=== PATIENT | female | born 1945 | race Caucasian/White ===

== ENCOUNTER → 2024-07-07 07:43 | Outpatient (REF) | payer MEDICARE, OTHER, SELFPAY ==
[2024-07-07 08:35] LABS: % Basophils 0.6 % (0-2); % Eosinophils 2.1 % (0-6); % Immature Granulocytes 0.2 % (0-0.5); % Lymphocytes 30.2 % (20.5-51.1); % Monocytes 8.3 % (1.7-9.3); % Neutrophils 58.6 % (42.2-75.2); Absolute Eosinophils 0.1 10^3/uL (0-0.7); Absolute Lymphocytes 1.6 10^3/uL (1.2-3.4); Absolute Monocytes 0.4 10^3/uL (0.1-0.6); Absolute Neutrophils 3.1 10^3/uL (1.4-6.5); Hematocrit 41.6 % (37.0-47.0); Hemoglobin 14.1 g/dL (12.0-16.0); Mean Corp Hgb Conc. 33.9 g/dL (33.0-37.0); Mean Corpuscular Hgb 30.5 pg (27.0-31.0); Mean Corpuscular Volume 89.8 fL (81.0-99.0); Mean Platelet Volume 9.9 fL (7.4-10.4); Nucleated Red Blood Cells % 0 %; Platelet Count 202 10^3/uL (130-400); Red Blood Cell Count 4.63 10^6/uL (4.20-5.40); Red Cell Dist. Width 13.3 % (11.5-14.5); White Blood Cell Count 5.2 10^3/uL (4.8-10.8)
[2024-07-07 08:40] LABS: Urine Albumin Negative (Neg - Trace); Urine Bilirubin Negative (Negative); Urine Character Clear (Clear); Urine Color Yellow; Urine Glucose Negative (Negative); Urine Ketone Negative (Negative); Urine Leukocyte Trace (Negative); Urine Nitrite Negative (Negative); Urine Occult Blood Negative (Negative); Urine Specific Gravity 1.025 (<1.030); Urine Urobilinogen Negative (Neg - 1+)
[2024-07-07 09:15] LABS: Urine Mucus Few
[2024-07-07 09:16] LABS: Urine Squamous Cell >30 /LPF (Few)
[2024-07-07 09:18] LABS: Urine Granular Cast 0-2 /LPF (0)
[2024-07-07 09:19] LABS: Urine Bacteria Few (Negative); Urine Red Blood Cell 0-2 /HPF (0-2)
[2024-07-07 10:42] LABS: ALT (SGPT) 20 U/L (0-35); AST (SGOT) 33 U/L (14-36); Albumin 4.6 g/dl (3.5-5.0); Alkaline Phosphatase 79 U/L (38-126); Blood Urea Nitrogen 22 mg/dl (7-17); Calcium 9.9 mg/dl (8.4-10.2); Carbon Dioxide 24 mmol/L (22-30); Chloride 107 mmol/L (98-107); Glucose 90 mg/dl (70-99); HDL Cholesterol 84 mg/dl; LDL Cholesterol, Calculated 149 mg/dl; Potassium 4.2 mmol/L (3.5-5.1); Sodium 140 mmol/L (135-145); Total Bilirubin 0.7 mg/dl (0.2-1.3); Total Cholesterol 252 mg/dl (50-199); Total Protein 7.5 g/dl (6.3-8.2); Triglyceride 95 mg/dl (10-149); Very Low Density Lipoprotein 19 mg/dl (0-30); eGFR > 60.00
[2024-07-07 10:51] LABS: Vitamin D, 25-OH*** 31.5 ng/mL (30-80)
[2024-07-07 11:07] LABS: TSH 2.28 uIU/ml (0.47-4.68)
== END ==
LOC: REG 07:43
PROVIDERS: ATTENDING PHYSICIAN Internal Medicine
DX: Z00.00 Encounter for general adult medical examination without abnormal findings (principal); I10 Essential (primary) hypertension; Z79.899 Other long term (current) drug therapy
CPT/HCPCS: 36415; 80053; 80061; 81003; 81015; 82306; 84443; 85025

== ENCOUNTER → 2024-07-26 14:47 | Outpatient (REF) | payer MEDICARE, OTHER, SELFPAY | LOC: PAVMRI 14:47 | PROVIDERS: ATTENDING PHYSICIAN Orthopaedic Surgery Orthopaedic Surgery of the Spine; FAMILY PHYSICIAN Internal Medicine | DX: M47.12 Other spondylosis with myelopathy, cervical region (principal) | CPT/HCPCS: 72141 ==

== ENCOUNTER → 2025-01-23 11:46 | Outpatient (REF) | payer MEDICARE, OTHER, SELFPAY | LOC: DHSLP 11:46 | PROVIDERS: ATTENDING PHYSICIAN Internal Medicine | DX: G47.33 Obstructive sleep apnea (adult) (pediatric) (principal) | CPT/HCPCS: 95800 ==

== ENCOUNTER → 2025-01-28 09:28 | Outpatient (REF) | payer MEDICARE, OTHER, SELFPAY | LOC: RAD 09:28 | PROVIDERS: ATTENDING PHYSICIAN Otolaryngology; FAMILY PHYSICIAN Internal Medicine | DX: J32.4 Chronic pansinusitis (principal) | CPT/HCPCS: 70486 ==

== ENCOUNTER 2025-06-24 12:24 | Day surgery (SDC) | payer MEDICARE, OTHER, SELFPAY ==
[2025-06-24] VITALS (28 sets, daily range): BP systolic 89–182; BP diastolic 52–118
--- NOTE | 2025-06-24 09:52 | ED.GENMED ---
History of Present Illness
<Kassandra Branch DO, Resident - Last Filed: 06/24/25 15:00>
General
Chief Complaint: Extremity Pain (non-traumatic)
Source: patient
Exam Limitations: none
Time Seen by Provider: 06/24/25 09:49
Nursing documentation reviewed up to this point in time: agreed with
History of Present Illness
History of Present Illness:
Patient is an 80-year-old female with past medical history pertinent for hip replacement of the right hip in 2019. Patient states that her hip felt funny after recently exiting a car. Patient squatted twice this morning and on the second squat
patient was unable to stand or bear weight and felt excruciating pain. X-ray of the joint confirms right hip dislocation of the joint prosthesis.
Past History
<Kassandra Branch DO, Resident - Last Filed: 06/24/25 15:00>
Past History
ED Past Medical History: Negative Hypercholesterolemia, IDDM or NIDDM
ED Past Surgical History: Orthopedic
Social History
Tobacco: Smoker
Alcohol: Occasional
Drug: None
Personal:
Living: with family
Employment: Retired
Family History
Family History: Other
Review of Systems
<Kassandra Branch DO, Resident - Last Filed: 06/24/25 15:00>
Review of Systems
Allergies reviewed?: Yes
Constitutional: Reports no symptoms
EENT: Reports no symptoms
Respiratory: Reports no symptoms
Cardiac: Reports no symptoms
ABD/GI: Reports no symptoms
: Reports no symptoms
Musculoskeletal: Reports joint pain (right hip pain )
Skin: Reports no symptoms
Neurological: Reports no symptoms
Endocrine: Reports no symptoms
Hematologic/Lymphatic: Reports no symptoms
Phy Exam
<Kassandra Branch DO, Resident - Last Filed: 06/24/25 15:00>
General Physical Exam
General Presentation: well appearing and mild distress
General age: appears stated age
General Skin: warm and dry
General Habitus: elderly
General Mental: alert
Cardiovascular Exam
Cardiovascular Exam: regular rate/rhythm
Heart Sounds: normal
Pulmonary Exam
Pulmonary Exam: lungs clear and no respiratory distress
Neurological Exam
Neurological Exam: alert and oriented x3
Musculoskeletal Exam
Musculoskeletal Exam: other (Right lower extremity internally rotated at the hip)
Psychiatric Exam
Psychiatric Exam: normal mood/affect
Course
<Kassandra Branch DO, Resident - Last Filed: 06/24/25 15:00>
Orders/Labs/Results
Orders:
Orders
06/24/25 09:18
CR Hip - RT w/wo Pel 2-3 Vw* Urgent
Comment:
Reason For Exam: pain
Include a pelvis x-ray?: Yes
06/24/25 10:23
Propofol [Diprivan] 20 ml .ROUTE .STK-MED
06/24/25 10:35
CR Hip - RT without Pel 1 Vw Stat
Comment:
Reason For Exam: post reduction
06/24/25 10:37
Complete Blood Count/With Diff Urgent
Comprehensive Metabolic Panel Urgent
06/24/25 11:03
HYDROmorphone [Dilaudid] 0.5 mg IV NOW STA
Ondansetron Injectable [Zofran] 4 mg IV NOW STA
06/24/25 11:50
HYDROmorphone [Dilaudid] 1 mg IV NOW STA
06/24/25 12:09
Propofol [Diprivan] 20 ml .ROUTE .STK-MED
Rocuronium Odon [Rocuronium] 50 mg .ROUTE .STK-MED ONE
Succinylcholine Chloride [Succinylcholine] 200 mg .ROUTE .STK-MED ONE
06/24/25 12:18
Lidocaine HCl/Pf [Xylocaine-Mpf 1% Vial] 50 mg .ROUTE .STK-MED ONE
06/24/25 12:30
CR Hip - RT without Pel 1 Vw Routine
Reason For Exam: RIGHT HIP POST REDUCTION DONE IN OR
RF Fluoroscopy, C-arm Routine
06/24/25 12:35
Fentanyl Citrate/Pf [Sublimaze] 100 mcg .ROUTE .STK-MED ONE
06/24/25 12:52
Dexamethasone Sod Phosphate [Decadron] 20 mg .ROUTE .STK-MED ONE
Ondansetron Injectable [Zofran] 4 mg .ROUTE .STK-MED ONE
06/24/25 13:02
Weight Bearing Status As Directed
Weight bearing to: Right lower extremity
Type: Wt. bearing as tolerated
Instructions: Hip precautions
Knee immobilizer at all times
06/24/25 13:04
Pt Eval And Treat Routine
Activity Level: Out of Bed-Early Mobility
Ambulate
06/24/25 13:05
Case Management Consult ONCE
Case Management Consult: Discharge Planning
Requested By:: PHYSICIAN
Ice Application [Cold Application] As Directed
Location: right hip
Frequency: Intermittent q4h
Duration of Application: No longer than 30 minutes
Method of Delivery: Ice packs
Ot Eval And Treat Routine
06/24/25 13:06
Advance Diet as Tolerated As Directed
Goal Diet: Regular
06/24/25 14:17
Admit/Transfer Patient As Directed
Co-Sign Provider:
Level of Care: Post Proc/Surg Recovery
Assign to:: Medical/Surgical
Physician / Group: Hospitalist
Diagnosis: Hip dislocation
Reason for Hospitalization: hip dislocation
Expected length of stay greater than two midnights?: No
ELOS- Estimated Length of Stay in days: 1
I certify the patient meets the requirements for IP care: Yes
Reason for Overnight Stay: Standard of Care
PRN Pain Medication Management As Directed
May give lesser potent ordered pain med per pt: Yes
preference::
Protocol:: Medication orders for pain may be administered in a
manner that supports deferring to patient preference
when the pt is:
- Requesting an ordered lesser potent pain medication.
Least to most potent pain medications are defined
as: acetaminophen < NSAID < tramadol < opioids
(morphine, oxycodone, hydromorphone).
- Requesting a lesser dose of the same medication IF
ORDERED.
- Requesting a less intrusive route of administration
if both routes are prescribed by the provider (PO <
IV).
06/24/25 14:18
Code Status As Directed
Resuscitation Status: Do not resuscitate
Reached after discussion with pt or family/Healthcare POA: Yes
DNR Bracelet Application ONCE
06/24/25 14:22
Acetaminophen [Tylenol] 650 mg PO Q4HPRN PRN
Bisacodyl [Dulcolax] 10 mg RECTAL [id number] PRN
Docusate W/Senna [Senokot-S] 1 tablet PO BIDPRN PRN
Polyethylene Glycol Powder [Miralax] 17 grams PO DAILYPRN PRN
06/24/25 14:22
Activity As Directed
Activity Level: As Tolerated
Pneumatic Compression Sleeves As Directed
Type: Knee high
Vital Signs As Directed
Frequency: Per unit guidelines
DX Deep Vein Thrombosis Video Routine
06/24/25 Dinner
Regular
06/25/25 06:00
Basic Metabolic Panel IN AM
Complete Blood Count/No Diff IN AM
Abnormal Lab Results
06/24/25
10:37
Abs Immat Gran (auto) 0.1 H 10^3/uL
(0-0.05)
Absolute Neuts (auto) 8.4 H 10^3/uL
(1.4-6.5)
Absolute Lymphs (auto) 1.0 L 10^3/uL
(1.2-3.4)
Absolute Monos (auto) 0.7 H 10^3/uL
(0.1-0.6)
Immature Gran % 0.7 H %
(0-0.5)
Neutrophils % 82.1 H %
(42.2-75.2)
Lymphocytes % 10.0 L %
(20.5-51.1)
Chloride 110 H mmol/L
(98-107)
BUN 20 H mg/dl
(7-17)
Glucose 121 H mg/dl
(70-99)
06/24/25 10:37
06/24/25 10:37
Vital Signs
Initial and Last Documented VS:
Initial Vital Signs
Temp Pulse Resp Pulse Ox
98.2 F 71 20 98
06/24/25 09:10 06/24/25 09:10 06/24/25 09:10 06/24/25 09:10
Last Documented Vital Signs
Temp Pulse Resp BP Pulse Ox
97.9 F 79 16 154/83 97
06/24/25 14:57 06/24/25 14:57 06/24/25 14:57 06/24/25 14:57 06/24/25 14:57
<Sukumar Borden, DO - Last Filed: 06/24/25 13:35>
Orders/Labs/Results
Orders:
Orders
06/24/25 09:18
CR Hip - RT w/wo Pel 2-3 Vw* Urgent
Comment:
Reason For Exam: pain
Include a pelvis x-ray?: Yes
06/24/25 10:23
Propofol [Diprivan] 20 ml .ROUTE .STK-MED
06/24/25 10:35
CR Hip - RT without Pel 1 Vw Stat
Comment:
Reason For Exam: post reduction
06/24/25 10:37
Complete Blood Count/With Diff Urgent
Comprehensive Metabolic Panel Urgent
06/24/25 11:03
HYDROmorphone [Dilaudid] 0.5 mg IV NOW STA
Ondansetron Injectable [Zofran] 4 mg IV NOW STA
06/24/25 11:50
HYDROmorphone [Dilaudid] 1 mg IV NOW STA
06/24/25 12:09
Propofol [Diprivan] 20 ml .ROUTE .STK-MED
Rocuronium Odon [Rocuronium] 50 mg .ROUTE .STK-MED ONE
Succinylcholine Chloride [Succinylcholine] 200 mg .ROUTE .STK-MED ONE
06/24/25 12:18
Lidocaine HCl/Pf [Xylocaine-Mpf 1% Vial] 50 mg .ROUTE .STK-MED ONE
06/24/25 12:30
CR Hip - RT without Pel 1 Vw Routine
Reason For Exam: RIGHT HIP POST REDUCTION DONE IN OR
RF Fluoroscopy, C-arm Routine
06/24/25 12:35
Fentanyl Citrate/Pf [Sublimaze] 100 mcg .ROUTE .STK-MED ONE
06/24/25 12:52
Dexamethasone Sod Phosphate [Decadron] 20 mg .ROUTE .STK-MED ONE
Ondansetron Injectable [Zofran] 4 mg .ROUTE .STK-MED ONE
06/24/25 13:02
Weight Bearing Status As Directed
Weight bearing to: Right lower extremity
Type: Wt. bearing as tolerated
Instructions: Hip precautions
Knee immobilizer at all times
06/24/25 13:04
Pt Eval And Treat Routine
Activity Level: Out of Bed-Early Mobility
Ambulate
06/24/25 13:05
Case Management Consult ONCE
Case Management Consult: Discharge Planning
Requested By:: PHYSICIAN
Ice Application [Cold Application] As Directed
Location: right hip
Frequency: Intermittent q4h
Duration of Application: No longer than 30 minutes
Method of Delivery: Ice packs
Ot Eval And Treat Routine
06/24/25 13:06
Advance Diet as Tolerated As Directed
Goal Diet: Regular
06/24/25 14:17
Admit/Transfer Patient As Directed
Co-Sign Provider:
Level of Care: Post Proc/Surg Recovery
Assign to:: Medical/Surgical
Physician / Group: Hospitalist
Diagnosis: Hip dislocation
Reason for Hospitalization: hip dislocation
Expected length of stay greater than two midnights?: No
ELOS- Estimated Length of Stay in days: 1
I certify the patient meets the requirements for IP care: Yes
Reason for Overnight Stay: Standard of Care
PRN Pain Medication Management As Directed
May give lesser potent ordered pain med per pt: Yes
preference::
Protocol:: Medication orders for pain may be administered in a
manner that supports deferring to patient preference
when the pt is:
- Requesting an ordered lesser potent pain medication.
Least to most potent pain medications are defined
as: acetaminophen < NSAID < tramadol < opioids
(morphine, oxycodone, hydromorphone).
- Requesting a lesser dose of the same medication IF
ORDERED.
- Requesting a less intrusive route of administration
if both routes are prescribed by the provider (PO <
IV).
06/24/25 14:18
Code Status As Directed
Resuscitation Status: Do not resuscitate
Reached after discussion with pt or family/Healthcare POA: Yes
DNR Bracelet Application ONCE
06/24/25 14:22
Acetaminophen [Tylenol] 650 mg PO Q4HPRN PRN
Bisacodyl [Dulcolax] 10 mg RECTAL [id number] PRN
Docusate W/Senna [Senokot-S] 1 tablet PO BIDPRN PRN
Polyethylene Glycol Powder [Miralax] 17 grams PO DAILYPRN PRN
06/24/25 14:22
Activity As Directed
Activity Level: As Tolerated
Pneumatic Compression Sleeves As Directed
Type: Knee high
Vital Signs As Directed
Frequency: Per unit guidelines
DX Deep Vein Thrombosis Video Routine
06/24/25 Dinner
Regular
06/25/25 06:00
Basic Metabolic Panel IN AM
Complete Blood Count/No Diff IN AM
Abnormal Lab Results
06/24/25
10:37
Abs Immat Gran (auto) 0.1 H 10^3/uL
(0-0.05)
Absolute Neuts (auto) 8.4 H 10^3/uL
(1.4-6.5)
Absolute Lymphs (auto) 1.0 L 10^3/uL
(1.2-3.4)
Absolute Monos (auto) 0.7 H 10^3/uL
(0.1-0.6)
Immature Gran % 0.7 H %
(0-0.5)
Neutrophils % 82.1 H %
(42.2-75.2)
Lymphocytes % 10.0 L %
(20.5-51.1)
Chloride 110 H mmol/L
(98-107)
BUN 20 H mg/dl
(7-17)
Glucose 121 H mg/dl
(70-99)
06/24/25 10:37
06/24/25 10:37
Vital Signs
Initial and Last Documented VS:
Initial Vital Signs
Temp Pulse Resp Pulse Ox
98.2 F 71 20 98
06/24/25 09:10 06/24/25 09:10 06/24/25 09:10 06/24/25 09:10
Last Documented Vital Signs
Temp Pulse Resp BP Pulse Ox
97.9 F 79 16 154/83 97
06/24/25 14:57 06/24/25 14:57 06/24/25 14:57 06/24/25 14:57 06/24/25 14:57
Procedures
<Sukumar Borden DO - Last Filed: 06/24/25 13:35>
Moderate Sedation
ASA Risk Score: Class III
Chart and allergies reviewed: Yes
Consent for anesthesia obtained: Yes
Time out completed (validating right patient & procedure): Yes
History of difficult intubation: No
Airway free of obstruction: Yes
Patient has a gag reflex: Yes
Patient is able to open mouth: Yes
Patient has no dentures: Yes
Patient has no loose teeth: Yes
Medication administered by Provider during Moderate Sedation: IV Propofol (mg)
Total dose administered: 120
Time drug administered: 10:28
Moderate Sedation Procedure End Time: 10:50
Comment: Unable to successfully reduce
Joint/Fracture Reduction
Right Hip:
Indication for procedure:: Right hip dislocation
Procedure completed by: Me, Dr. Borden
Consent form signed: Yes
If no, reason: Emergency procedure
Joint reduced: with anesthesia sedation
Injury was: closed
Further treatement: needs further treatment
Capillary Refill: normal
Additional information:
I attempted Tom maneuver and Allis maneuverthere appeared to be an initial reduction temporarily however she remained dislocated as her right lower extremity remains shortened and internally rotated and post procedural imaging confirms
persistent dislocation. I notified Dr. Coleman and he was taken to the OR.
<Kassandra Branch DO, Resident - Last Filed: 06/24/25 15:00>
MDM/Problems Addressed
Differential Diagnosis Includes:
hip dislocation
MDM/Problems Addressed:
R hip reduction attempted multiple times under sedation in the ED. Unable to successfully reduce the joint. Consulted Ortho, Dr. Kemp. Dr. Kemp took patient to OR. Patient care transitioned to orthopedic surgery.
<Kassandra Branch DO, Resident - Last Filed: 06/24/25 15:00>
*Radiology
Radiology exam reviewed: radiology read reviewed (Dislocation of the right total hip arthroplasty with superior displacement of the femoral head prosthesis from the acetabular cup component.)
*Pulse Oximetry
SaO2: 98
Oxygen Mode of Delivery: Room air
Patient hypoxic: no
*Critical Care Note
Total Time (30-74mins, 75-104mins- exclusive of procedures): Not Applicable
ED Attending Note
<Kassandra Branch DO, Resident - Last Filed: 06/24/25 15:00>
-
Portions of this chart may have been created with voice recognition software.� Occasional wrong word or��sound alike� substitutions may have occurred due to the inherent limitations of voice recognition software.
<Sukumar Borden, DO - Last Filed: 06/24/25 13:35>
ED Attending Note
Patient seen and examined by attending physician: Yes
I performed a history and physical exam of patient and discussed management with resident, I reviewed resident's note and agree with documented findings and plan of care.: Yes
ED Attending Note:
I evaluated the patient at bedside. She squatted twice and on the recent most squat this morning she has been unable to walk since. X-ray confirms right hip dislocation of hip prosthesis. She is known to Dr. Mcdonald. She gave signed consent for
procedural sedation and closed reduction. On exam, she holds the right lower extremity in internal rotation at the hip.
Discharge Plan
Departure
Patient Disposition: OR
Date of Disposition: 06/24/25
Time of Disposition: 12:07
Presentation/result/management discussed w/ accepting MD/DO: dr kemp
Discharge Problem:
Dislocation, hip closed
Interventions
Interventions:
*Risk Screen - Suicide Last Done: 06/24/25 09:10
*General Assessment Last Done: 06/24/25 09:10
*Neglect/Abuse Screening Last Done: 06/24/25 09:10
*Nursing Disposition Last Done: 06/24/25 12:21
ED-Musculoskeletal Assessment Last Done: 06/24/25 10:00
ED-Peripheral Vascular Assessment Last Done: 06/24/25 10:00
ED-Skin Assessment Last Done: 06/24/25 10:00
Discharge Date and Time
Discharge Date/Time: 06/24/25 12:21
[2025-06-24 10:45] LABS: Hematocrit 38.2 % (37.0-47.0); Hemoglobin 13.2 g/dL (12.0-16.0); Mean Corp Hgb Conc. 34.6 g/dL (33.0-37.0); Mean Corpuscular Volume 88.0 fL (81.0-99.0); Nucleated Red Blood Cells % 0 %; Platelet Count 227 10^3/uL (130-400); Red Cell Dist. Width 13.0 % (11.5-14.5)
[2025-06-24] MEDS: DILAUDID 0.5 MG IV (11:05)
[2025-06-24] MEDS: ZOFRAN 4 MG IV (11:06)
[2025-06-24 11:13] LABS: ALT (SGPT) 16 U/L (0-35); AST (SGOT) 24 U/L (14-36); Albumin 4.3 g/dl (3.5-5.0); Alkaline Phosphatase 68 U/L (38-126); Blood Urea Nitrogen 20 mg/dl (7-17); Calcium 9.6 mg/dl (8.4-10.2); Carbon Dioxide 24 mmol/L (22-30); Chloride 110 mmol/L (98-107); Estimated Creatinine Clearance 70 ml/min; Glucose 121 mg/dl (70-99); Potassium 3.6 mmol/L (3.5-5.1); Sodium 139 mmol/L (135-145); Total Protein 7.1 g/dl (6.3-8.2); eGFR > 60.00
[2025-06-24] MEDS: DILAUDID 1 MG IV (11:52)
--- NOTE | 2025-06-24 12:34 | W.PN.UPDATE ---
Update Note
Progress Note Update
Full consult dictated. 80 yo female s/p right total hip [place] [address] Mcdonald. Noticed some difficulty last PM but was able to ambulate. This AM she bent down outside and dislocated her right hip. Brought to [facility] where xrays revealed a
dislocated right hip prosthesis. Attempted reduction by ER staff was unsuccessful and ortho called for assistance. No prior dislocations. Patient last ate last night. Discussed plan for CR in the OR with risks, complications benefits and postop
expectations. Will plan for postop admission as she lives alone so that PT/OT can evaluate and she can be considered for home PT with VN.
--- NOTE | 2025-06-24 14:02 | HPS.HSE ---
Family Physician
-
Family Physician: NO INTERVIEW UNKNOWN
Chief Complaint
-
Fall and hip pain
History of Present Illness
80-year-old woman with past medical history of hip replacement of the right hip in 2019. Patient stated that her hip felt 'funny' after she exited a car. She squatted twice this morning and on the second squat she was unable to stand or bear weight
and felt excruciating pain. X-ray of the joint confirmed a right hip dislocation of the joint prosthesis. She was taken to the OR and had it reduced in the OR. She is recovering well from the procedure.
Medical History
Past Medical History
Past Medical History: Reports HTN
Additional Past Medical History:
past hip replacement
Past Surgical History: Reports Other (hip replacement)
Additional Past Surgical History:
Past hip replacement
Social History
Tobacco: Non-smoker
Alcohol: Occasional
Drug: None
Family History
Family History: Not pertinent
Allergies / Home Medications
Allergies reflects when Allergies were last updated in [facility].
Home Medications with original date entered in [facility]
Allergy/Medication List:
Allergies
Allergy/AdvReac Type Severity Reaction Status Date / Time
environmental Allergy sneezing Uncoded 06/24/25 09:17
Home Medications
No Meds [No Current Medications] 12/11/20
Review of Systems
-
History Source: Patient
A 12 point ROS was completed and negative except as noted: Yes
Constitutional: Reports No Symptoms
Physical Exam
Vital Signs
Vital Signs
Temp Pulse Resp BP Pulse Ox
97.9 F 83 23 150/75 95
06/24/25 13:38 06/24/25 14:00 06/24/25 14:00 06/24/25 13:47 06/24/25 14:00
Physical Exam
General: Well Developed, Well Nourished, No Apparent Distress, Comfortable and Conversant
HEENT: Nose Appears Normal and Ears Appear Normal
Respiratory: Clear
Cardiac: S1/S2 and Regular Rhythm
GI: Soft, Non Tender and Non Distended
Musculoskeletal: No Clubbing, No Cyanosis and No Edema
Skin: Warm and Dry
Neuro: Awake, Alert and Oriented
Psych: Calm
Laboratory Results
-
06/24/25 10:37
06/24/25 10:37
Laboratory Results
Total Bilirubin 0.8 mg/dl (0.2-1.3) 06/24/25 10:37
AST 24 U/L (14-36) 06/24/25 10:37
ALT 16 U/L (0-35) 06/24/25 10:37
Alkaline Phosphatase 68 U/L (38-126) 06/24/25 10:37
Data Reviewed
-
Lab Data: Labs Reviewed by me
Impression/Plan
-
IMPRESSION:
80 woman with hip dislocation, reduced in the OR. Recovering well.
PLAN:
1. Post joint reduction
plan per ortho
Regular diet and PT when ortho recommends it
Code: DNR (she has capacity to make this choice)
VCD for DVTp
[2025-06-25 03:08] VITALS: BP 150/73
[2025-06-25 05:51] LABS: Hematocrit 35.6 % (37.0-47.0); Hemoglobin 12.2 g/dL (12.0-16.0); Mean Corp Hgb Conc. 34.3 g/dL (33.0-37.0); Mean Corpuscular Volume 89.2 fL (81.0-99.0); Platelet Count 212 10^3/uL (130-400); Red Cell Dist. Width 13.2 % (11.5-14.5)
[2025-06-25 05:56] LABS: Blood Urea Nitrogen 16 mg/dl (7-17); Calcium 9.3 mg/dl (8.4-10.2); Carbon Dioxide 25 mmol/L (22-30); Chloride 109 mmol/L (98-107); Estimated Creatinine Clearance 70 ml/min; Glucose 102 mg/dl (70-99); Potassium 3.8 mmol/L (3.5-5.1); Sodium 138 mmol/L (135-145); eGFR > 60.00
[2025-06-25 07:38] VITALS: BP 150/71
--- NOTE | 2025-06-25 07:57 | W.PN.UPDATE ---
Update Note
Progress Note Update
Ms. Deal is POD1 following her closed reduction right prosthetic hip dislocation performed under the directed of Dr. Kemp. She reports she is doing well this morning, and denies any pain in the hip. She is up and walking with her walker. She is
wearing her knee immobilizer. She is very anxious for discharge home. She is not interested in being discharged to a SNF.
Directed exam of the right lower extremity reveals no significant tenderness to palpation. Able to perform SLR. Calf soft and nontender. NVID.
--We would appreciate assistance from case management in planning dc for this patient. Patient does report she has friends in the area who would be willing to stay with her for a short time, and family that would come stay with her as well. We could
also look into setting up VN/PT/OT if patient is not agreeable to SNF.
--WBAT with walker. Knee immobilizer.
--Observe THPs for 6-8 weeks.
--We will plan to see the patient back in the office for repeat evaluation and likley transition into a hip abductor brace.
--Pain control prn.
--- NOTE | 2025-06-25 10:00 | CM ---
Addendum entered by Elvia Guallpa RN 06/25/25 13:27:
PT recommending homecare. Patient agreeable to [facility]. Referral sent in [facility]. Patient's friend will provide transportation home.
Original Note:
Reviewed the chart notes and spoke with the patient at the bedside. The patient resides alone in an independent apartment with elevator access. The patient reports only DME is a rolling walker. The patent has had [facility] in the past and
is planning on having them at discharge. The patient has had [facility] in past. The patient confirmed her pharmacy of choice is [facility]. CM continues to be available to patient/family and is monitoring medical plan for needs at
discharge.
Plan: Discharge plans will depend on the patient's progress.
[2025-06-25 11:20] VITALS: BP 155/77
[2025-06-25 12:03] VITALS: BP 161/86; PULSE 75; O2SAT 96
[2025-06-25 13:20] VITALS: BP 161/86; PULSE 74; O2SAT 96
--- NOTE | 2025-06-25 14:36 | W.PN.HOSP.TC ---
Today's Communication/Plan
-
Assessment / Plan
Assessment / Plan
General: No Apparent Distress, Comfortable and Conversant
HEENT: NormoCephalic, Moist mucous membranes, Atraumatic
Respiratory: Clear and Non Labored Respirations
Cardiac: S1/S2 and Regular Rhythm; No Rub or Gallop
GI: Soft, Non Tender, Non Distended and Normal Bowel Sounds
Musculoskeletal: No Edema, right knee immobilizer in place
Skin: Warm and dry
: NO Lopez
Neuro: Awake, Alert, Nonfocal/grossly intact
Psych: Calm and Intact Judgment/Insight
Ms. Deal is a 80-year-old female with a medical history of right hip replacement 2020 who presented with significant right hip pain and inability to bear weight after standing up from a squatting position. In the ED, imaging showed a dislocated
right prosthetic hip joint. She was brought to the OR for reduction under anesthesia. She tolerated the procedure well and feels significant relief after the procedure. She remains in a knee immobilizer and can weight-bear as tolerated with a
walker. She was evaluated by PT/OT who recommended home with home health. She is medically stable for discharge to home. She will need outpatient follow-up with orthopedics for likely transition into a hip abductor brace.
Right prosthetic hip dislocation:
- Status post reduction in the OR 06/24, tolerated procedure well
- Knee immobilizer in place
- Okay to ambulate as tolerated with walker
- Will need outpatient Ortho follow-up for likely transition into hip abductor brace
- Arrangements pending for home health service at which time she can be discharged
DVT prophylaxis: SCD
CODE STATUS: DNR
Total time spent on today's encounter was 45 minutes
Anticipated Discharge: Within 24 hours
Subjective/Interval History
-
Date of Service: June 25, 2025
Patient was seen and examined at bedside this morning. She is feeling well status post reduction of right prosthetic hip dislocation. Awaiting arrangements for home health.
Objective Data
-
Labs:
Laboratory Results
06/25/25
04:40
WBC 8.3
Hgb 12.2
Hct 35.6 L
Plt Count 212
Sodium 138
Potassium 3.8
Chloride 109 H
Carbon Dioxide 25
BUN 16
Creatinine 0.6
Glucose 102 H
Calcium 9.3
Vital Signs:
Vital Signs
Temp Pulse Resp BP Pulse Ox
97.8 F 73 16 155/77 98
06/25/25 11:20 06/25/25 11:20 06/25/25 11:20 06/25/25 11:20 06/25/25 11:20
I&O
06/24/25 06/25/25 06/26/25
06:59 06:59 06:59
Intake Total 590 / 590
Balance 590 / 590
Review of Systems
-
History Source: Patient
All other systems: Reviewed and negative
Physical Exam
-
General: No Apparent Distress
--- NOTE | 2025-06-25 15:29 | W.DCSUMMARY ---
Discharge Summary
Discharge Data
Date of Admission: 06/24/25
Date of Discharge: 06/25/25
Total time spent discharging patient (in min): 40
-
Pending Results: No
Hospital Course
Ms. Deal is a 80-year-old female with a medical history of right hip replacement 2019 who presented with significant right hip pain and inability to bear weight after standing up from a squatting position. In the ED, imaging showed a dislocated
right prosthetic hip joint. She was brought to the OR for reduction under anesthesia. She tolerated the procedure well and feels significant relief after the procedure. She remains in a knee immobilizer and can weight-bear as tolerated with a
walker. She was evaluated by PT/OT who recommended home with home health. She is medically stable for discharge to home. She will need outpatient follow-up with orthopedics for likely transition into a hip abductor brace.
Discharge Plan
-
Patient Disposition: Home with Home Care
Discharge Diagnosis/Procedures: Dislocated right prosthetic hip joint
Activity: Other activity
Additional Activity: Weightbearing as tolerated with a walker and knee immobilizer
Activity Restrictions/Additional Instructions:
Ms. Deal is a 80-year-old female with a medical history of right hip replacement 2019 who presented with significant right hip pain and inability to bear weight after standing up from a squatting position. In the ED, imaging showed a dislocated
right prosthetic hip joint. She was brought to the OR for reduction under anesthesia. She tolerated the procedure well and feels significant relief after the procedure. She remains in a knee immobilizer and can weight-bear as tolerated with a
walker. She was evaluated by PT/OT who recommended home with home health. She is medically stable for discharge to home. She will need outpatient follow-up with orthopedics for likely transition into a hip abductor brace.
Referrals:
UNKNOWN,NO INTERVIEW [Family Provider]
Prescriptions:
Continued
No Current Medications
0
Discharge Date and Time
Print Language: CYMRO
[2025-06-25 15:47] VITALS: BP 144/62
== END 2025-06-25 17:40 | disposition home health service (06) ==
LOC: SDS 12:24
PROVIDERS: Internal Medicine; ATTENDING PHYSICIAN Internal Medicine; EMERGENCY PHYSICIAN Emergency Medicine
DX: T84.020A Dislocation of internal right hip prosthesis, initial encounter (principal); W18.30XA Fall on same level, unspecified, initial encounter; Y79.2 Prosthetic and other implants, materials and accessory orthopedic devices associated with adverse incidents; Z96.641 Presence of right artificial hip joint
CPT/HCPCS: 27266; 27265; 73501; 73502; 76000; 80048; 80053; 85025; 85027; 96374; 96375; 97162; 97166; 97535; 99152; 99285

== ENCOUNTER 2025-08-11 13:13 | Emergency (ER) | payer MEDICARE, OTHER, SELFPAY ==
[2025-08-11] VITALS (17 sets, daily range): BP systolic 124–174; BP diastolic 59–106; BMI 29.3
[2025-08-11] MEDS: XANAX 0.25 MG PO (14:01)
--- NOTE | 2025-08-11 14:02 | ED.MUSCINJ ---
HPI-Injury
General
Chief Complaint: Musculo-Skeletal Complaint
Time Seen by Provider: 08/11/25 13:45
Nursing documentation reviewed up to this point in time: agreed with
History of Present Illness-Injury
Initial Injury comments:
80-year-old female presents to the ER as she is concerned that her hip is going to dislocate again. Patient was seen in this ER in the beginning of June with a dislocated hip which she reports happened after she had been squatting doing some
gardening. Patient states that she was discharged home in a knee immobilizer which she wore consistently for 2 weeks. She had follow-up with orthopedics in the office and knee immobilizer was discontinued. Patient reports that her hip was
replaced [address] Mcdonald. She was treated by Dr. Kemp while in the hospital and had to undergo general anesthesia for hip reduction. Patient states that she has been using Tylenol and ibuprofen as recommended by them. She has been
experiencing increasing clicking and cracking prompting her to contact the office today. She did not receive a phone call back prompting her to come to the ER. She was able to walk back to the treatment room but now feels uncomfortable in the bed
and is preferring to keep her hip and knee flexed. She reports severe intermittent spasm in the leg. She denies any syncope or trauma.
Past History
Past History
ED Past Medical History: Negative Hypercholesterolemia, IDDM or NIDDM
ED Past Surgical History: Orthopedic
Social History
Tobacco: Smoker
Alcohol: Occasional
Drug: None
Personal:
Living: with family
Employment: Retired
Family History
Family History: Other
Review of Systems
Review of Systems
Allergies reviewed?: Yes
Phy Exam
Physical Exam
Physical Exam:
Patient is awake, alert, appears in no acute distress, head is NCAT, PERRL, EOMI mucous membranes moist, conjunctiva pink, heart regular rate and rhythm without murmurs or ectopy, lungs are clear to auscultation without wheezes rales or rhonchi, no
JVD, abdomen is soft and nontender on palpation, pelvis is stable to rock, mild diffuse pain on palpation of right hip which she is preferring to keep flexed at 90 degrees, her knee is also flexed at 90 degrees, 2+ DP pulses present, no distal edema
or erythema noted, GCS is 15
Injury Course
Orders/Labs/Results
Orders:
Orders
08/11/25 13:57
Alprazolam [Xanax] 0.25 mg PO NOW STA
Hip, Right 2-3 Views [CR Hip - RT w/wo Pel 2-3 Vw*] Urgent
Comment:
Reason For Exam: pain
Include a pelvis x-ray?: Yes
08/11/25 16:03
Propofol [Diprivan] 20 ml .ROUTE .STK-MED
08/11/25 16:28
Propofol [Diprivan] 40 mg IV NOW STA
08/11/25 16:29
ASA Classification Routine
08/11/25 16:46
CR Hip - RT without Pel 1 Vw Urgent
Reason For Exam: post reduction
08/11/25 16:48
Knee Immobilizer Right-Treatme ONCE
Procedures
Moderate Sedation
ASA Risk Score: Class I
Chart and allergies reviewed: Yes
Consent for anesthesia obtained: Yes
Time out completed (validating right patient & procedure): Yes
Moderate Sedation Start Time(when first medication is given): 16:35
History of difficult intubation: No
Airway free of obstruction: Yes
Patient has a gag reflex: Yes
Patient is able to open mouth: Yes
Patient has no dentures: Yes
Patient has no loose teeth: No
Medication administered by Provider during Moderate Sedation: IV Propofol (mg)
Total dose administered: 90
Time drug administered: 16:38
Moderate Sedation Procedure End Time: 16:50
Joint/Fracture Reduction
Right Hip:
Indication for procedure:: recurrent dislocation
Procedure completed by: Manuel Cerna
Consent form signed: Yes
Joint reduced: with anesthesia sedation
Injury was: closed
Further treatement: no treatment needed
Post reduction exam: stable
Capillary Refill: normal
Normal distal neurovascular exam?: Yes
Additional information:
Dr Charles assisted with procedure
MDM/Problems Addressed
Differential Diagnosis Includes:
Differential diagnosis to consider but not limited to sprain, dislocation, DJD, strain, fracture along with other etiologies considered
Chronic conditions affecting care:
Prior hip replacement
*Radiology
Radiology exam reviewed: preliminary read by ED provider (I independently viewed and interpreted x-ray of the right hip showing dislocation of prosthesis. I independently viewed and interpreted postreduction x-ray showing hip to be properly
reduced. No apparent fracture)
*Pulse Oximetry
SaO2: 97
Oxygen Mode of Delivery: Room air
Patient hypoxic: no
*Instrumentation And Controls Technician Interpretation
Rate: normal (I independently viewed and interpreted rhythm strip showing normal sinus rhythm, no ectopy)
*Critical Care Note
Total Time (30-74mins, 75-104mins- exclusive of procedures): Not Applicable
Update Note
Update Note:
1700:Patient is awake, alert, tolerated sedation well. Vital signs stable. No increased work of breathing. Feels comfortable in her knee immobilizer. She has her walker with her. Awaiting postreduction film for disposition. Will give trial of
p.o.
1759:Postreduction films shows hips to be appropriately in acetabulum. Will plan for discharge.
ED Attending Note
-
Portions of this chart may have been created with voice recognition software.� Occasional wrong word or��sound alike� substitutions may have occurred due to the inherent limitations of voice recognition software.
Discharge Plan
Departure
Patient Disposition: Home (Routine Discharge)
Date of Disposition: 08/11/25
Time of Disposition: 18:01
Patient with high blood pressure during this ER visit?: Yes
Discharge Problem:
Dislocation, hip closed
Instructions: Hip Dislocation (DC), MODERATE SEDATION ADULT, BLOOD PRESSURE
Prescriptions:
No Action
No Current Medications
0
Referrals:
Nehemias Smtyh MD [Active, Orthopedics] - Next open appointment
UNKNOWN - PT NOT,INTERVIEWE [Family Provider]
Activity Restrictions/Additional Instructions:
Continue to wear knee immobilizer until you are seen in follow-up with orthopedics. You may need to take Tylenol as needed for discomfort. Return to the ER for any concerns
Interventions
Interventions:
*Risk Screen - Suicide Last Done: 08/11/25 13:14
*General Assessment Last Done: 08/11/25 13:14
*Neglect/Abuse Screening Last Done: 08/11/25 13:14
*ED- Fall Risk Assessment Last Done: 08/11/25 13:23
ED-Musculoskeletal Assessment Last Done: 08/11/25 13:23
Discharge Date and Time
Print Language: CAMEROONIAN
[2025-08-11] MEDS: DIPRIVAN 40 MG IV (16:38)
== END 2025-08-11 18:30 | disposition home or self-care (01) ==
LOC: EMR 13:13
PROVIDERS: EMERGENCY PHYSICIAN Emergency Medicine
DX: T84.020A Dislocation of internal right hip prosthesis, initial encounter (principal); R03.0 Elevated blood-pressure reading, without diagnosis of hypertension; F17.200 Nicotine dependence, unspecified, uncomplicated; Y79.2 Prosthetic and other implants, materials and accessory orthopedic devices associated with adverse incidents; Z96.641 Presence of right artificial hip joint
CPT/HCPCS: 99285; 27265; 29505; 73501; 73502

== ENCOUNTER → 2025-08-29 13:54 | Outpatient (REF) | payer MEDICARE, OTHER, SELFPAY ==
[2025-08-29 15:37] LABS: C-Reactive Protein 7.40 mg/L (0.0-10.00)
== END ==
LOC: REG 13:54
PROVIDERS: ATTENDING PHYSICIAN Orthopaedic Surgery; FAMILY PHYSICIAN Internal Medicine
DX: Z96.649 Presence of unspecified artificial hip joint (principal); T84.029A Dislocation of unspecified internal joint prosthesis, initial encounter
CPT/HCPCS: 36415; 85652; 86140